=== PATIENT | female | born 2000 | race Caucasian/White ===

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

== ENCOUNTER 2019-01-08 17:28 | Emergency (ER) | payer BC ==
[~2019-01-08] VITALS: Ht 157.5 cm; Wt 83.6 kg
[~2019-01-08 17:28] MED LIST: IBUP-1542 PO; MED4DP PO
[2019-01-08 17:31] VITALS: Ht 157.5 cm; Wt 83.6 kg
--- NOTE | 2019-01-08 18:16 | ERD ---
ER Documentation Chief Complaint Chief Complaint SORE THROAT FEW DAYS HPI Patient is a 18 years old female with no known PMHx presenting to the clinic throat pain x few days. Patient was evaluated by her PCP who was concerned about severe tonsillar swelling and possible airway compromise. Patient denies fever, chills, night sweats, cough, SOB. Patient admits to taking OTC advil without resolution. ROS All systems reviewed and are negative except as per history of present illness. Medications Home Meds Active Scripts Methylprednisolone* (Medrol* DOSE PACK) 4 Mg/Dose-Pack Tab.ds.pk, 4 MG PO . DIRECTED for 5 Days, PACKET Prov:SPRING FLANNERY PA-C 01/08/19 Amoxicillin/Potassium Clav (Amox-Clav 500-125 mg Tablet) 500-125 mg Tab, 1 TAB PO BID for 7 Days, TAB Prov:SPRING FLANNERY PA-C 01/08/19 Methylprednisolone* (Medrol* DOSE PACK) 4 Mg/Dose-Pack Tab.ds.pk, 4 MG PO . DIRECTED for 6 Days, PACKET Prov:VAUGHN ISLAS 05/28/18 Ibuprofen* (Motrin*) 600 Mg Tab, 600 MG PO Q6, #30 TAB Prov:VAUGHN ISLAS 05/28/18 Allergies Allergies: Coded Allergies: No Known Allergy (Unverified , 05/28/18) PMhx/Soc History of Surgery: No Anesthesia Reaction: No Hx Neurological Disorder: No Hx Respiratory Disorders: No Hx Cardiac Disorders: No Hx Psychiatric Problems: No Hx Miscellaneous Medical Probl: No Hx Alcohol Use: No Hx Substance Use: No Hx Tobacco Use: No Physical Exam Vitals Vital Signs Date Temp Pulse Resp B/P (MAP) Pulse Ox O2 O2 Flow FiO2 Time Delivery Rate 01/08/19 98.2 86 18 123/78 100 Room Air 20:07 (93) 01/08/19 97.3 96 18 125/77 99 17:31 (93) Physical Exam Const: No acute distress Head: Atraumatic Eyes: Normal Conjunctiva ENT: Normal External Ears, Nose. Severe tonsillar swelling with mild erythema. No pus drainage, no mass noted, no uvular deviation. Mild cervical lymphadenopathy. Neck: Full range of motion. No meningismus. Resp: Clear to auscultation bilaterally Cardio: Regular rate and rhythm, no murmurs Neur: Awake and alert Psych: Normal Mood and Affect Results 24 hrs Current Medications Medications Dose Sig/Kanika Start Time Status Last (Trade) Ordered Route PRN Stop Time Admin Dose Reason Admin 10 mg ONCE ONCE 01/08/19 DC 01/08/19 Dexamethasone IM 18:30 18:39 (Decadron) 01/08/19 18:31 Ceftriaxone 250 mg ONCE ONCE 01/08/19 DC 01/08/19 Sodium IM 18:30 18:39 (Rocephin) 01/08/19 18:31 Lidocaine 20 ml ONCE ONCE 01/08/19 DC 01/08/19 (Xylocaine SC 18:30 18:39 1% (Mdv) 20 01/08/19 18:31 ml) Procedures/MDM Patient was seen and evaluated for throat pain. Least suspicion of peritonsillar abscess due to stable vital signs and no uvular deviation; no neck CT required. Patient is most likely experiencing tonsillitis. Patient is stable and ready for discharge. Patient was given Rocephin and dexamethasone IM in hospital. Departure Diagnosis: Primary Impression: Tonsillitis Condition: Stable Patient Instructions: When Your Child Has Pharyngitis or Tonsillitis Referrals: [facility] Additional Instructions: Patient advised to return to the ED immediately for new or worsening symptoms. Patient advised to follow up with primary care provider in the next 24-48 hours. Patient verbalized understanding and agrees with treatment plan and course of action. If patient has no primary care they may follow up with [facility] [address] [place] [id number] or [facility] [address] [place] [address] or [facility] [address] [place] [address] SPRING FLANNERY PA-C Jan 08, 2019 18:16
[2019-01-08] MEDS ORDERED: DEXAMETHASONE 10 MG/ML 1 ML INJ IM ONE (18:30)
[2019-01-08] MEDS ORDERED: LIDOCAINE 1% (MDV) 20 ML INJ SC ONE (18:30)
[2019-01-08] MEDS ORDERED: CEFTRIAXONE 250 MG INJ IM ONE (18:30)
[2019-01-08] MEDS ORDERED: MED4DP PO (18:31)
[2019-01-08] MEDS ORDERED: AMOX1TAB9 PO (18:31)
[2019-01-08 20:07] VITALS: BP 123/78; PULSE 86; RESP 18
== END 2019-01-08 19:20 | disposition home or self-care (01) ==
LOC: FTE 17:28
DX: J03.90 Acute tonsillitis, unspecified (principal)
CPT/HCPCS: 96372; J0696; J1100; Z7502; Z7610